=== PATIENT | female | born 1940 | race Caucasian/White ===

== ENCOUNTER 2017-08-10 18:43 | Inpatient (IN) | payer OTHER ==
[~2017-08-10] VITALS: Ht 144.8 cm; Wt 119.0 kg
[~2017-08-10 18:43] MED LIST: ADVAIR 250/501 DISK IH; ALTERA NEBULIZ1 EACH MC; BREO ELLIPTA I1 EACH IH; BYSTOLIC10 MG PO; CALCIUM 600 +1 EA11 PO; DIOVAN320 MG PO; DUONEB 2.5-0.5 M3 ML AEROSOL; DUONEB 2.5-0.5 M3 ML IH; IPRATR-ALBUTEROL3 ML IH; LEVAQUIN500 MG PO; LEVOFLOXACIN750 MG PO; LEVOTHYROXINE50 MCG PO; MECLIZINE HCL25 MG PO; MOTRIN600 MG PO; PHENERGAN-CODE120 ML PO; PREDNISONE10 MG PO; PREDNISONE20 MG PO; REMIFEMIN PO; ROBITUSSIN AC,T10 ML PO; SPIRIVA RESPIMAT4 GM IH; SPIRIVA1 INHALATI IH; TORSEMIDE20 MG PO; ULORIC40 MG PO; VALSARTAN320 MG PO; ZEGERID40 MG PO
[2017-08-10 20:11] LABS: HEMATOCRIT 47.1 % (36.0-46.0); HEMOGLOBIN 14.3 G/DL (11.9-15.5); MCH 28.4 PG (29.0-34.0); MCHC 30.4 G/DL (30.0-36.0); MCV 93.6 FL (83-99); PLATELET COUNT 140 K/uL (156-360); RBC DIS.WIDTH-CV 16.1 % (11.8-14.6); RBC DIS.WIDTH-SD 55.7 % (39-53); RED BLOOD COUNT 5.03 M/uL (3.80-5.20); WHITE BLOOD COUNT 5.3 K/uL (4.1-10.2)
[2017-08-10 20:22] LABS: CHLORIDE 98 mEq/L (99-109); POTASSIUM 3.2 mEq/L (3.7-5.4); SODIUM 149 mEq/L (136-147)
[2017-08-10 20:23] LABS: GLUCOSE 107 mg/dL (70-99)
[2017-08-10 20:27] LABS: CREATININE 0.7 mg/dL (0.6-1.3); GFR ESTIMATE (CALCULATED) > 59 mL/min/
[2017-08-10 20:28] LABS: UREA NITROGEN (BUN) 10 mg/dL (9-23)
[2017-08-10 20:32] LABS: TROP-I INTERPRETATION NEGATIVE; TROPONIN-I 0.02 ng/mL (0.0-0.30)
[2017-08-10] MEDS ORDERED: DUONEB 2.5-0.5 M3 ML AEROSOL (21:00)
[2017-08-10] MEDS ORDERED: STIOLTO RESPIMAT4 GM IH (21:01)
[2017-08-10] MEDS ORDERED: BROVANA15 MCG/2 M IH (21:01)
[2017-08-10] MEDS ORDERED: ASPIR-LOW81 MG PO (21:02)
[2017-08-10 21:03] LABS: APPEARANCE CLOUDY ((CLEAR)); BILIRUBIN NEGATIVE; BLOOD MODERATE; GLUCOSE (STRIP) NEGATIVE; KETONES NEGATIVE; LEUKOCYTES MODERATE; NITRITE NEGATIVE; PROTEIN (STRIP) >=500; SPECIFIC GRAVITY 1.025 (1.000-1.030)
[2017-08-10 21:05] LABS: COLOR DK YELLOW ((YELLOW))
[2017-08-10 21:20] LABS: BACTERIA 3+ /HPF; EPITHELIAL CELLS 1+ /HPF; MUCUS NONE SEEN /LPF; UCUL ADDED? YES; WHITE BLOOD CELLS 30-40 /HPF (0-5)
[2017-08-11] VITALS (7 sets, daily range): BP systolic 128–166; BP diastolic 59–83
[2017-08-11 03:18] LABS: BASOPHIL (%) 0.6 % (0-1); EOSINOPHIL (%) 0.8 % (0-5); HEMATOCRIT 46.3 % (36.0-46.0); HEMOGLOBIN 13.8 G/DL (11.9-15.5); IMMATURE GRANULOCYTE (%) 0.4 % (0.0-0.7); LYMPHOCYTE (%) 12.7 % (15-42); LYMPHOCYTE COUNT 0.6 K/uL (1.0-2.8); MCH 28.3 PG (29.0-34.0); MCHC 29.8 G/DL (30.0-36.0); MCV 95.1 FL (83-99); MONOCYTE (%) 10.4 % (3-12); MONOCYTE COUNT 0.5 K/uL (0-0.8); NEUTROPHIL (%) 75.1 % (45-76); NEUTROPHIL COUNT 3.7 K/uL (1.8-6.4); PLATELET COUNT 138 K/uL (156-360); RBC DIS.WIDTH-SD 55.9 % (39-53); RED BLOOD COUNT 4.87 M/uL (3.80-5.20); WHITE BLOOD COUNT 4.9 K/uL (4.1-10.2)
[2017-08-11 03:32] LABS: CHLORIDE 96 mEq/L (99-109); POTASSIUM 3.3 mEq/L (3.7-5.4); SODIUM 150 mEq/L (136-147)
[2017-08-11 03:34] LABS: GLUCOSE 149 mg/dL (70-99); TOTAL PROTEIN 5.4 g/dL (6.4-8.3)
[2017-08-11 03:36] LABS: TOTAL BILIRUBIN 1.2 mg/dL (0.0-1.0); TROP-I INTERPRETATION NEGATIVE; TROPONIN-I 0.02 ng/mL (0.0-0.30)
[2017-08-11 03:38] LABS: ALKALINE PHOSPHATASE 52 IU/L (3-129); CREATININE 0.8 mg/dL (0.6-1.3); GFR ESTIMATE (CALCULATED) > 59 mL/min/
[2017-08-11 03:39] LABS: UREA NITROGEN (BUN) 10 mg/dL (9-23)
[2017-08-11 03:40] LABS: AST (GOT) 12 IU/L (2-34)
[2017-08-11 03:41] LABS: ALT (GPT) 6 IU/L (3-49)
[2017-08-11 03:44] LABS: CARBON DIOXIDE (BICARBONATE) > 40.0 mEq/L (20-31)
[2017-08-11 12:09] LABS: TROP-I INTERPRETATION NEGATIVE; TROPONIN-I 0.03 ng/mL (0.0-0.30)
[2017-08-12 04:30] VITALS: BP 135/61
[2017-08-12 05:37] LABS: BASOPHIL (%) 0.4 % (0-1); EOSINOPHIL (%) 2.7 % (0-5); EOSINOPHIL COUNT 0.1 K/uL (0-0.3); HEMATOCRIT 44.6 % (36.0-46.0); HEMOGLOBIN 13.3 G/DL (11.9-15.5); IMMATURE GRANULOCYTE (%) 0.2 % (0.0-0.7); LYMPHOCYTE COUNT 0.9 K/uL (1.0-2.8); MCH 28.7 PG (29.0-34.0); MCHC 29.8 G/DL (30.0-36.0); MCV 96.1 FL (83-99); MONOCYTE (%) 9.5 % (3-12); MONOCYTE COUNT 0.5 K/uL (0-0.8); NEUTROPHIL (%) 69.2 % (45-76); NEUTROPHIL COUNT 3.3 K/uL (1.8-6.4); PLATELET COUNT 129 K/uL (156-360); RBC DIS.WIDTH-CV 16.3 % (11.8-14.6); RBC DIS.WIDTH-SD 57.6 % (39-53); RED BLOOD COUNT 4.64 M/uL (3.80-5.20); WHITE BLOOD COUNT 4.7 K/uL (4.1-10.2)
[2017-08-12 06:41] LABS: ALBUMIN 2.7 G/DL (3.2-4.8); ALKALINE PHOSPHATASE 38 IU/L (3-129); ALT (GPT) 4 IU/L (3-49); AST (GOT) 9 IU/L (2-34); CHLORIDE 95 MEQ/L (99-109); CREATININE 0.8 MG/DL (0.6-1.3); GFR ESTIMATE (CALCULATED) > 59 mL/min/; POTASSIUM 3.2 MEQ/L (3.7-5.4); SODIUM 147 MEQ/L (136-147); TOTAL BILIRUBIN 0.9 MG/DL (0.0-1.0); TOTAL PROTEIN 5.3 G/DL (6.4-8.3); UREA NITROGEN (BUN) 12 mg/dL (9-23)
[2017-08-12 06:42] LABS: CARBON DIOXIDE (BICARBONATE) > 40.0 MEQ/L (20-31); GLUCOSE 84 mg/dL (70-99)
[2017-08-12 07:30] VITALS: BP 138/84
[2017-08-12 11:28] VITALS: BP 141/86
[2017-08-12 16:00] VITALS: BP 138/80
[2017-08-12 19:00] VITALS: BP 169/70
[2017-08-12 23:00] VITALS: BP 139/69
[2017-08-13 03:00] VITALS: BP 136/72
[2017-08-13 06:50] LABS: CARBON DIOXIDE (BICARBONATE) > 40.0 MEQ/L (20-31); CHLORIDE 87 MEQ/L (99-109); CREATININE 0.9 MG/DL (0.6-1.3); GFR ESTIMATE (CALCULATED) > 59 mL/min/; GLUCOSE 96 mg/dL (70-99); POTASSIUM 3.4 MEQ/L (3.7-5.4); SODIUM 146 MEQ/L (136-147); UREA NITROGEN (BUN) 12 mg/dL (9-23)
[2017-08-13 07:30] VITALS: BP 170/85
[2017-08-13 13:30] VITALS: BP 137/63
[2017-08-13 15:53] VITALS: BP 136/66
[2017-08-13 21:33] VITALS: BP 135/74
[2017-08-13 22:54] VITALS: BP 128/66
[2017-08-14 03:55] VITALS: BP 135/63
[2017-08-14 07:47] VITALS: BP 148/72
[2017-08-14] MEDS ORDERED: XARELTO20 MG PO (08:31)
[2017-08-14] MEDS ORDERED: K-DUR20 MEQ PO (08:32)
[2017-08-14] MEDS ORDERED: CEFEPIME HCL1 GM IV (08:33)
== END 2017-08-14 13:23 | DRG 291 ==
LOC: EME 18:43 → 4EAST 21:25 → EDOF 21:25 → ENRESERV 21:38 → 4EAST 23:46 → ENPENDDIS 08-14 13:00 → 4EAST 08-14 13:23
PROVIDERS: Emergency Medicine; Family Medicine; Internal Medicine; Internal Medicine Cardiovascular Disease
DX: I11.0 Hypertensive heart disease with heart failure (principal); I50.33 Acute on chronic diastolic (congestive) heart failure; J44.1 Chronic obstructive pulmonary disease with (acute) exacerbation; J44.0 Chronic obstructive pulmonary disease with (acute) lower respiratory infection; J18.9 Pneumonia, unspecified organism; N39.0 Urinary tract infection, site not specified; E03.9 Hypothyroidism, unspecified; I25.10 Atherosclerotic heart disease of native coronary artery without angina pectoris; I27.20 Pulmonary hypertension, unspecified; I47.1 Supraventricular tachycardia; I48.0 Paroxysmal atrial fibrillation; K21.9 Gastro-esophageal reflux disease without esophagitis; M10.9 Gout, unspecified; G43.909 Migraine, unspecified, not intractable, without status migrainosus; E66.01 Morbid (severe) obesity due to excess calories; Z68.43 Body mass index [BMI] 50.0-59.9, adult; Z75.1 Person awaiting admission to adequate facility elsewhere; Z87.891 Personal history of nicotine dependence; Z99.81 Dependence on supplemental oxygen; Z79.82 Long term (current) use of aspirin; Z88.1 Allergy status to other antibiotic agents
CPT/HCPCS: 71046; 80048; 80053; 81003; 83880; 84484; 85025; 85027; 87077; 87086; 87186; 93005; 93306; 94640; 94640 76; 94760; 94799; 99202; 99281; 99285; J0456; J0692; J1160; J1940